=== PATIENT | male | born 1960 | race Caucasian/White ===

== ENCOUNTER 2018-05-15 11:14 | Emergency (ER) | payer MEDICAID, OTHER ==
[~2018-05-15] VITALS: Ht 193 cm; Wt 93.2 kg
[2018-05-15 11:22] VITALS: TEMP 98.8
[2018-05-15 11:45] LABS: BASO % 0.2 % (0.0-2.0); EOS # 0.3 (0.0-0.7); EOS % 5.3 % (0-4.0); GRAN # 2.9 (1.4-6.5); GRAN % 48.9 % (42.2-75.2); HEMATOCRIT 40.3 % (42.0-52.0); HEMOGLOBIN 13.6 g/dl (13.5-18.0); LYMPH # 2.1 (1.2-3.4); LYMPH % 36.5 % (20.0-51.0); MEAN CELL VOLUME 92 fl (80.0-100.0); MEAN CORPUSCULAR HEMOGLOBIN 31 pg (27.0-31.0); MEAN CORPUSCULAR HGB CONC 34 g/dl (33.0-37.0); MEAN PLATELET VOLUME 10.8 fl (7.4-10.4); MONO # 0.5 (0.1-0.6); MONO % 8.6 % (1.7-9.3); PLATELET COUNT 162 K/mm3 (130-400); RED BLOOD COUNT 4.37 M/mm3 (4.20-5.60); REDCELL DISTRIBUTION WIDTH-CV 12.9 % (11.5-14.5)
[2018-05-15 11:53] LABS: ALANINE AMINOTRANSFERASE 21 U/L (21-72); ALBUMIN 4.4 gm/dL (3.5-5.0); ALKALINE PHOSPHATASE 92 U/L (50-136); ANION GAP 10 mmol/L (7-16); AST,SGOT 27 U/L (15-37); BILIRUBIN,TOTAL 0.7 mg/dL (0.0-1.0); BLOOD UREA NITROGEN 21 mg/dL (9-20); CALCIUM 9.9 mg/dL (8.4-10.2); CARBON DIOXIDE 27 mmol/L (22-30); CHLORIDE 102 mmol/L (98-107); CREATININE, serum 0.79 (0.66-1.25); GLUCOSE 93 mg/dL (74-106); LIPASE 370 U/L (23-300); POTASSIUM 4.3 mmol/L (3.4-5.0); PROTHROMBIN TIME 10.9 SECONDS (9.7-12.8); SODIUM 138 mmol/L (137-145); TOTAL PROTEIN 7.5 gm/dL (6.4-8.2)
[2018-05-15 12:10] LABS: TROPONIN-I < 0.012 ng/mL (0.000-0.035)
[2018-05-15] MEDS ORDERED: NITROSTAT0.4 MG/TAB SL (13:08)
[2018-05-15 13:17] VITALS: BP 121/83; PULSE 65
== END 2018-05-15 13:18 | disposition home or self-care (01) ==
LOC: COL.ER 11:14
PROVIDERS: Emergency Medicine
DX: R07.89 Other chest pain (principal); I10 Essential (primary) hypertension
CPT/HCPCS: J7030

== ENCOUNTER 2019-09-29 03:05 | Observation (INO) | payer OTHER ==
[2019-09-29] VITALS (9 sets, daily range): BP systolic 126–153; BP diastolic 74–102; PULSE 49–80; TEMP 97.6–98.3
[~2019-09-29] VITALS: Ht 190.5 cm; Wt 100.0 kg
[~2019-09-29 03:05] MED LIST: NITROSTAT0.4 MG/TAB SL
[2019-09-29 04:01] LABS: COLLECTION METHOD CLEAN CATCH
[2019-09-29 04:04] LABS: BASO % 0.1 % (0.0-2.0); EOS # 0.2 (0.0-0.7); EOS % 2.4 % (0-4.0); GRAN # 6.1 (1.4-6.5); GRAN % 73.2 % (42.2-75.2); HEMATOCRIT 38.8 % (42.0-52.0); HEMOGLOBIN 13.2 g/dl (13.5-18.0); LYMPH # 1.2 (1.2-3.4); LYMPH % 14.4 % (20.0-51.0); MEAN CELL VOLUME 91 fl (80.0-100.0); MEAN CORPUSCULAR HEMOGLOBIN 31 pg (27.0-31.0); MEAN CORPUSCULAR HGB CONC 34 g/dl (33.0-37.0); MEAN PLATELET VOLUME 10.9 fl (7.4-10.4); MONO # 0.8 (0.1-0.6); MONO % 9.5 % (1.7-9.3); PLATELET COUNT 154 K/mm3 (130-400); RED BLOOD COUNT 4.28 M/mm3 (4.20-5.60); REDCELL DISTRIBUTION WIDTH-CV 12.8 % (11.5-14.5)
[2019-09-29 04:13] LABS: MUCOUS Present /lpf; PH 6 (5-8); SQUAMOUS EPITHELIAL None Seen /hpf; URINE APPEARANCE Hazy; URINE BACTERIA None Seen /hpf; URINE BILIRUBIN Negative (NEGATIVE); URINE BLOOD 3+ (NEGATIVE); URINE CALCIUM OXALATE CRYSTAL Present /hpf; URINE COLOR Yellow; URINE GLUCOSE Negative (NEGATIVE); URINE KETONE Negative (NEGATIVE); URINE LEUKOCYTE ESTERASE Trace (NEGATIVE); URINE NITRATE Negative (NEGATIVE); URINE PROTEIN(semi-quant) 1+ (NEGATIVE); URINE RBC >50 /hpf; URINE UROBILINOGEN Negative (NEGATIVE)
[2019-09-29 04:16] LABS: ALANINE AMINOTRANSFERASE 19 U/L (4-49); ALBUMIN 4.3 gm/dL (3.5-5.0); ALKALINE PHOSPHATASE 93 U/L (50-136); ANION GAP 9 mmol/L (7-16); AST,SGOT 26 U/L (15-37); BILIRUBIN,TOTAL 0.8 mg/dL (0.0-1.0); BLOOD UREA NITROGEN 19 mg/dL (9-20); C-REACTIVE PROTEIN < 0.5 mg/dL (0.0-0.9); CALCIUM 9.5 mg/dL (8.4-10.2); CARBON DIOXIDE 22 mmol/L (22-30); CHLORIDE 104 mmol/L (98-107); CREATININE, serum 1.16 (0.66-1.25); GLUCOSE 127 mg/dL (74-106); LIPASE 303 U/L (23-300); POTASSIUM 4.1 mmol/L (3.4-5.0); SODIUM 135 mmol/L (137-145); TOTAL PROTEIN 7.8 gm/dL (6.4-8.2)
--- NOTE | 2019-09-29 08:30 | NUR ---
Patient received from [facility]. Report from [facility]. rounded. Orders obtained. Consent. Fluids to gravity. Patient brushed his teeth. Patient to [facility] with [facility]. Will await his return.
--- NOTE | 2019-09-29 10:57 | NUR ---
Patient has returned from [facility]. Alert & oriented. He has been up to the bathroom & voided. Vss on room air. Ice water provided.
--- NOTE | 2019-09-29 13:53 | NUR ---
Patient resting in bed. He tolerated lunch, pain better managed after percocet. He continues to void without difficulty, education given on ureteral stents. Patient is very talkative.
--- NOTE | 2019-09-29 14:28 | NUR ---
notifed of patient complaints of pain with urination. Orders obtained. Flomax & azo given. Will re assess pain.
--- NOTE | 2019-09-29 19:07 | NUR ---
Patient ready for discharge. He was able to get ahold of his ride after dinner. Script for flomax & percocet sent with patient. I did call [facility]ffi reed, & [facility] to get pricing for patient & provided him with the information. was given update on patient & patient concerns-once again stressed with patient he has the bilateral stents & provided education. Medication per orders. Int Dc. Stressed importance of staying hydrated. Patient ambulated out with belongings. questions answered.
== END 2019-09-29 19:15 | disposition home or self-care (01) ==
LOC: COL.ER 03:05 → SURG 05:57
PROVIDERS: Emergency Medicine; ADMIT Urology
DX: N20.2 Calculus of kidney with calculus of ureter (principal); Q98.4 Klinefelter syndrome, unspecified; F17.210 Nicotine dependence, cigarettes, uncomplicated
CPT/HCPCS: C1769; C2617; G0378; J0690; J0696; J1100; J1885; J2405; J2704; J3010; J7030; J7120; Q9967

== ENCOUNTER 2021-05-02 23:13 | Emergency (ER) | payer OTHER ==
[~2021-05-02] VITALS: Ht 188 cm; Wt 99.1 kg
[2021-05-02 23:25] VITALS: TEMP 98.2
[2021-05-03 00:22] LABS: BASO % 0.2 % (0.0-2.0); EOS % 0.5 % (0.0-4.0); GRAN # 3.4 K/mm3 (1.4-6.5); HEMATOCRIT 42.8 % (42.0-52.0); LYMPH # 1.8 K/mm3 (1.2-3.4); LYMPH % 30.6 % (20.0-51.0); MEAN CELL VOLUME 90 fl (80.0-100.0); MEAN CORPUSCULAR HEMOGLOBIN 32 pg (27-31); MEAN CORPUSCULAR HGB CONC 35 g/dl (33.0-37.0); MONO # 0.6 K/mm3 (0.1-0.6); PLATELET COUNT 159 K/mm3 (130-400); RED BLOOD COUNT 4.76 M/mm3 (4.20-5.60); REDCELL DISTRIBUTION WIDTH-CV 12.8 % (11.5-14.5)
[2021-05-03 00:39] LABS: ALANINE AMINOTRANSFERASE 27 U/L (0-55); ALBUMIN 4.1 gm/dL (3.4-4.8); ALKALINE PHOSPHATASE 92 U/L (40-150); ANION GAP 11 mmol/L (7-16); AST,SGOT 22 U/L (5-34); BILIRUBIN,TOTAL 0.6 mg/dL (0.2-1.2); BLOOD UREA NITROGEN 21 mg/dL (8-26); CALCIUM 9.6 mg/dL (8.4-10.2); CARBON DIOXIDE 26 mmol/L (23-31); CHLORIDE 102 mmol/L (98-107); GLUCOSE 103 mg/dL (70-99); LIPASE 76 U/L (8-78); POTASSIUM 3.8 mmol/L (3.5-4.5); SODIUM 139 mmol/L (136-145); TOTAL PROTEIN 7.8 gm/dL (6.2-8.1)
[2021-05-03 00:47] LABS: TROPONIN-I < 0.010 ng/mL (0.00-0.033)
[2021-05-03 03:07] VITALS: BP 129/81; PULSE 56
== END 2021-05-03 03:08 | disposition home or self-care (01) ==
LOC: COL.ER 23:13
PROVIDERS: Nurse Practitioner Family
DX: R07.89 Other chest pain (principal); I25.2 Old myocardial infarction; Z79.02 Long term (current) use of antithrombotics/antiplatelets; Z87.891 Personal history of nicotine dependence
CPT/HCPCS: J7030

== ENCOUNTER 2021-06-02 00:49 | Emergency (ER) | payer OTHER ==
[~2021-06-02] VITALS: Ht 188 cm; Wt 109.1 kg
[2021-06-02] MEDS ORDERED: AMOXICILLIN 50500 MG PO (01:34)
[2021-06-02 01:40] VITALS: BP 136/83; PULSE 81; TEMP 98.3
== END 2021-06-02 01:40 | disposition home or self-care (01) ==
LOC: COL.ER 00:49
DX: K02.9 Dental caries, unspecified (principal); K04.7 Periapical abscess without sinus; F17.200 Nicotine dependence, unspecified, uncomplicated

== ENCOUNTER 2021-06-07 11:40 | Emergency (ER) | payer OTHER ==
[~2021-06-07] VITALS: Ht 190.5 cm; Wt 106.8 kg
[~2021-06-07 11:40] MED LIST changes: +AMOXICILLIN 50500 MG PO
[2021-06-07 11:44] VITALS: BP 123/87; PULSE 79; TEMP 97.8
[2021-06-07] MEDS ORDERED: NORCO 325 MG-51 TAB PO (11:57)
[2021-06-07] MEDS ORDERED: CLEOCIN HCL300 MG PO (11:57)
== END 2021-06-07 12:11 | disposition home or self-care (01) ==
LOC: COL.ER 11:40
DX: K04.7 Periapical abscess without sinus (principal); K02.9 Dental caries, unspecified; Z88.1 Allergy status to other antibiotic agents

== ENCOUNTER 2021-06-10 09:23 | Emergency (ER) | payer OTHER ==
[~2021-06-10] VITALS: Ht 190.5 cm; Wt 106.8 kg
[~2021-06-10 09:23] MED LIST changes: +CLEOCIN HCL300 MG PO; +NORCO 325 MG-51 TAB PO
[2021-06-10 09:58] LABS: GRAN # 2.1 K/mm3 (1.4-6.5); GRAN % 51.9 % (42.2-75.2); HEMATOCRIT 38.6 % (42.0-52.0); HEMOGLOBIN 13.1 g/dl (13.5-18.0); LYMPH # 1.4 K/mm3 (1.2-3.4); LYMPH % 34.5 % (20.0-51.0); MEAN CELL VOLUME 93 fl (80.0-100.0); MEAN CORPUSCULAR HEMOGLOBIN 31 pg (27-31); MEAN CORPUSCULAR HGB CONC 34 g/dl (33.0-37.0); MEAN PLATELET VOLUME 10.4 fl (7.4-10.4); MONO # 0.5 K/mm3 (0.1-0.6); MONO % 12.6 % (1.7-9.3); PLATELET COUNT 166 K/mm3 (130-400); RED BLOOD COUNT 4.17 M/mm3 (4.20-5.60); REDCELL DISTRIBUTION WIDTH-CV 13.1 % (11.5-14.5)
[2021-06-10 10:11] LABS: ALANINE AMINOTRANSFERASE 36 U/L (0-55); ALBUMIN 4.2 gm/dL (3.4-4.8); ALKALINE PHOSPHATASE 90 U/L (40-150); ANION GAP 10 mmol/L (7-16); AST,SGOT 27 U/L (5-34); BILIRUBIN,TOTAL 0.5 mg/dL (0.2-1.2); BLOOD UREA NITROGEN 17 mg/dL (8-26); CALCIUM 9.2 mg/dL (8.4-10.2); CARBON DIOXIDE 24 mmol/L (23-31); CHLORIDE 103 mmol/L (98-107); CREATININE, serum 0.87 mg/dL (0.72-1.25); GLUCOSE 105 mg/dL (70-99); LIPASE 57 U/L (8-78); POTASSIUM 4.2 mmol/L (3.5-4.5); SODIUM 137 mmol/L (136-145); TOTAL PROTEIN 7.2 gm/dL (6.2-8.1)
[2021-06-10 10:21] LABS: TROPONIN-I < 0.010 ng/mL (0.00-0.033)
[2021-06-10] MEDS ORDERED: PLAVIX 75MG TAB75 MG PO (14:42)
[2021-06-10 15:05] VITALS: BP 123/81; PULSE 61; TEMP 98.4
== END 2021-06-10 15:05 | disposition home or self-care (01) ==
LOC: COL.ER 09:23
PROVIDERS: Emergency Medicine
DX: R07.89 Other chest pain (principal); R51.9 Headache, unspecified; Z87.891 Personal history of nicotine dependence
CPT/HCPCS: Q9967